=== PATIENT | male | born 1980 | race Caucasian/White ===

== ENCOUNTER 2017-09-14 01:40 | Emergency (ER) | payer SELFPAY ==
[2017-09-14 02:04] VITALS: BP 139/89; PULSE 77; RESP 16; TEMP 36.5; O2SAT 96; BMI 28.4
--- NOTE | 2017-09-14 02:06 | DI.RAD.S_ITS ---
PROCEDURE: XR CHEST 2V INDICATIONS: periumblical pain TECHNIQUE: 2 views of the chest were acquired. COMPARISON: [facility], , CHEST 1 VIEW, 10/24/2008, 4:03. FINDINGS: Surgical changes and devices: None. Lungs and pleura: No pleural effusions or pneumothorax. Lungs are clear. Mediastinum: Mediastinal contours are normal. Heart size is normal. Bones and chest wall: No suspicious bony abnormalities. Soft tissues appear unremarkable. IMPRESSION: No acute cardiopulmonary disease process. Dictated by: Susan Loyd MD, PhD on 09/14/2017 at 7:55 Approved by: Susan Loyd MD, PhD on 09/14/2017 at 7:56
--- NOTE | 2017-09-14 02:07 | DI.CT.S_ITS ---
PROCEDURE: CT ABDOMEN PELVIS W CON INDICATIONS: periumbilical pain TECHNIQUE: After the administration of intravenous contrast, 5 mm thick sections acquired from the diaphragm to the symphysis. 5 mm coronal and sagittal reformats were acquired. For radiation dose reduction, the following was used: automated exposure control, adjustment of mA and/or kV according to patient size. COMPARISON: None. FINDINGS: Image quality: Limited by motion artifact. Patient reportedly had hiccups during image acquisition. ABDOMEN: Lung bases: Lung bases are clear. Heart size is normal. Solid organs: Liver is normal in size and enhancement. Diffuse fatty infiltration of the liver. Gallbladder is normal.. Biliary system is non dilated. Pancreas enhances normally. Spleen is absent. No adrenal nodules. Kidneys demonstrate normal size and enhancement, without hydronephrosis. Peritoneum and bowel: Bowel loops demonstrate normal wall thickness and caliber. No free fluid or air. The appendix is normal. Nodes and vessels: No retroperitoneal or mesenteric adenopathy by size criteria. Aorta and inferior vena cava are normal in size. Miscellaneous: No ventral hernias. PELVIS: Genitourinary: Bladder wall thickness is normal. Miscellaneous: No inguinal hernias or adenopathy. Bones: No suspicious bony lesions. No vertebral body compression fractures. Spine degenerative disc disease and facet arthropathy. IMPRESSION: 1. No acute disease process. 2. The appendix is normal. 3. No free fluid or air. 4. Hepatic steatosis. 5. Status post splenectomy. Dictated by: Susan Loyd MD, PhD on 09/14/2017 at 7:44 Approved by: Susan Loyd MD, PhD on 09/14/2017 at 7:50
[2017-09-14 02:38] VITALS: BP 110/71; PULSE 100; RESP 18; O2SAT 97
[2017-09-14 02:39] LABS: Add Manual Diff / Slide Review NO; Eosinophils Percent Auto 0.9 % (2-4); Hematocrit 46.9 % (41-53); Hemoglobin 16.1 g/dL (13.5-17.5); Lymphocytes Percent Auto 38.3 % (25-40); Mean Corpuscular HGB Conc 34.3 % (30-36); Mean Corpuscular Hemoglobin 32.2 PG (26-34); Monocytes Percent Auto 6.6 % (3-14); Neutrophils Absolute Auto 5300 /uL (3000-5900); Neutrophils Percent Auto 53.2 % (50-75); Platelet Count 237 X10^3/uL (150-400); Red Blood Cell Count 4.99 X10^6/uL (4.5-5.9); Red Cell Distribution Width 12.1 % (11.6-14.8)
[2017-09-14] MEDS: SODIUM CHLORIDE 0.9% 1,000 ML 1000 ML IV (02:46)
[2017-09-14] MEDS: HYDROMORPHONE 0.5 MG INJ 1 MG IV (02:46)
[2017-09-14 02:53] LABS: Ethanol (ETOH) 191 mg/dL; Lipase 74 U/L (23-300)
[2017-09-14 02:54] LABS: Alanine Aminotransferase 51 IU/L (21-72); Albumin 4.1 g/dL (3.5-5.0); Albumin Globulin Ratio 1.5 (1.0-2.8); Alkaline Phosphatase 59 U/L (38-126); Aspartate Aminotransferase 46 IU/L (17-59); BUN Creatinine Ratio 19.2 (6-22); Bilirubin Total 0.5 mg/dL (0.2-1.3); Blood Urea Nitrogen 23 mg/dL (9-20); Calcium 8.9 mg/dL (8.4-10.2); Carbon Dioxide 24 mmol/L (22-32); Chloride 100 mmol/L (98-107); Estimated Glomerular Filt Rate > 60.0 mL/min (>60); Globulin 2.8 g/dL (1.7-4.1); Glucose 91 mg/dL (70-100); HEMOLYSIS < 15 (0-50); Sodium 139 mmol/L (137-145); Total Protein 6.9 g/dL (6.3-8.2)
[2017-09-14 03:06] LABS: Troponin I < 0.012 ng/mL (0.01-0.034)
[2017-09-14 03:30] VITALS: BP 110/65; PULSE 57; RESP 18; O2SAT 100
[2017-09-14 04:30] VITALS: BP 108/54; PULSE 66; RESP 16; O2SAT 97
[2017-09-14 05:30] VITALS: BP 100/49; PULSE 65; RESP 14; O2SAT 96
[2017-09-14 05:37] LABS: Bacteria Urine None Seen; RBC Urine None Seen (0-5/HPF); WBC Urine None Seen (0-5/HPF)
[2017-09-14 05:38] LABS: Appearance Urine UA CLEAR; Bilirubin Urine UA NEGATIVE (NEGATIVE); Glucose Urine UA NEGATIVE (Normal); Ketones Urine UA NEGATIVE (NEGATIVE); Leukocyte Esterase Urine UA NEGATIVE (NEGATIVE); Nitrite Urine UA Negative (Negative); Occult Blood Urine UA NEGATIVE (Negative); Protein Urine UA NEGATIVE (Negative); Specific Gravity Urine UA <=1.005 (1.000-1.035); Urobilinogen Urine UA 0.2 E.U./dL (0.2); pH Urine UA 6.5 (4.5-8.0)
[2017-09-14 05:39] LABS: Color Urine UA Straw
[2017-09-14 05:43] LABS: Culture Indicated Urine Cult Not Indicated; Urine Comments Microscopic Normal
--- NOTE | 2017-09-14 05:51 | ED_ITS ---
HPI - Abdominal Pain General Chief Complaint: Abdominal Pain Stated Complaint: EXTREME STOMACH PAIN DUE TO DRINKING History of Present Illness HPI narrative: HPI 36-year-old male with history of a splenectomy (2/2 shrapnel wounds in [place]) presents with poorly characterized mid to upper abdominal pain decreased LOC after drinking. Patient is unreliable historian but accompanied by peers who provides most history. Patient also reportedly has a history of taking flexeril , possibly recreationally, in the setting of alcohol use. M/S/F/SocHx notable for: please see HPI; remainder reviewed with patient and in chart. ROS: Negative constitutional, eye, cardiovascular, pulmonary, GI, , MSK, skin , neurologic, psychiatric, endocrine unless noted in the HPI. Exam Gen: pleasant, moderately uncomfortable but not in extremis. HEENT: NC, AT, PEERL, EOMI. Resp: Clear to auscultation bilaterally, normal work of breathing. Card: Regular rate and rhythm with no murmurs rubs or gallops, extremities warm and well perfused. GI: ND, no RUQ TTP, moderate epigastric TTP, mild diffuse turns palpation, no rebound or guarding. : No CVA tenderness to percussion bilaterally. MSK: No visible deformities, strength and tone WNL. Skin: Normal color with no visible lesions. Neuro: AO x 3, moderately slurring speech, no facial asymmetry, vision and hearing WNL. Psych: Mood and affect appropriate. Labs / Imaging (pertinent): WBC 10.0, HB 16.1, sodium 139, potassium 4.0, total bilirubin 0.5, AST 46, ALT 51, ALP 59, troponin less than 0.012, lipase 74, EtOH 191. CXR: No acute cardiopulmonary disease process. No focal infiltrate, cardiomegaly , rib fractures, or mediastinal widening, lung markings extend to the periphery bilaterally and there are no deep sulci. CT abdomen/pelvis: normal appearing appendix retrocecal and location. There are some mildly prominent lymph nodes in the periaortic retroperitoneum. These could be reactive. Follow-up suggested. Fatty liver. Spleen not identified be surgically absent. Scattered diverticulitis of the descending colon without findings to suggest diverticulitis. EKG: SR 69 bpm, diffuse, but predominantly precordial, J-point elevation with J- point notching in lead V2 and concave ST segments with concordant and asymmetric T waves, no T-wave inversions, no LBBB. MDM Previous chart, nursing note, and vitals reviewed. A: 36-year-old male with history of a splenectomy (2/2 shrapnel wounds in [place]) presents with poorly characterized mid to upper abdominal pain decreased LOC after drinking. DDx: Biliary disease (cholecystitis, cholelithiasis, choledocholithiasis, biliary colic), pancreatitis, appendicitis, ureterolithiasis, peptic ulcer disease, GERD, ACS, PE. Evaluation: exam notable for toxidrome consistent with [employer] depressants, EtOH level elevated, no findings on history or exam to suggest clinically significant traumatic injuries. Patient noted to have hypoxemia with respiratory pauses when supine, when sitting up right the patient had SaO2 of 99 % or greater on room air, the absence of shortness breath, tachycardia, hypotension, report and risk factors evaluation with respect to PE is not indicated. Patient's chest x-ray clear, ECG is nonischemic, J-point elevation is noted, however this is most consistent with ANURAG. Troponin negative. Patient given 0.5 mg hydromorphone with resolution symptoms. CT abdomen/pelvis notable for mild lymphadenopathy, possibly reactive. This could potentially explain the patient's presenting symptoms. However, is felt more likely that the patient has alcoholic gastritis. Given the absence of hemoptysis, the patient's normal chest x-ray, non-toxic. Strongly doubt Boerhaave's or [place] tears. No evidence on history, labs, or imaging of biliary disease. As the patient has [employer] depression and recurrent hypoxia only when supine he was observed in the ED pending clearance of his toxidrome and repeat evaluation, patient care transferred to Dr. Rebollar, the oncoming daytime provider. Impression: abdominal pain, EtOH intoxication (please reference below for remainder of encounter information) Related Data Home Medications Medication Instructions Recorded Confirmed Wellbutrin XL 09/14/17 Allergies Allergy/AdvReac Type Severity Reaction Status Date / Time No Known Drug Allergies Allergy Verified 09/14/17 02:44 [facility] Social History Smoking Status: Current every day smoker Exam Initial Vital Signs Initial Vital Signs: Vital Signs Temperature 97.7 F 09/14/17 02:04 Pulse Rate 77 09/14/17 02:04 Respiratory Rate 16 09/14/17 02:04 Blood Pressure 139/89 H 09/14/17 02:04 Pulse Oximetry 96 09/14/17 02:04 Course Orders Ordered: ED Orders 09/14/17 02:06 XR chest 2V Stat 09/14/17 02:07 CT abdomen pelvis w con Stat EKG-12 Lead Stat 09/14/17 02:30 Complete Blood Count AUTO DIFF Stat Comprehensive Metabolic Panel Stat Ethanol (ETOH) Stat Lipase Stat Troponin I Stat 09/14/17 05:00 Urinalysis and Microscopic Stat Discontinued Medications Hydromorphone HCl (Dilaudid) 1 mg IV NOW ONE Stop: 09/14/17 02:08 Last Admin: 09/14/17 02:46 Dose: 0.5 mg Sodium Chloride (Normal Saline 0.9%) 1,000 mls @ 1,000 mls/hr IV BOLUS ONE Stop: 09/14/17 03:28 Last Infusion: 09/14/17 04:03 Dose: 0 mls/hr Admin: 09/14/17 02:46 Dose: 1,000 mls/hr Vital Signs - 8 hr 09/14/17 02:04 09/14/17 02:38 09/14/17 03:30 Temperature 97.7 F Pulse Rate 77 100 H 57 L Respiratory Rate 16 18 18 Blood Pressure 139/89 H Blood Pressure [Right Arm] 110/71 110/65 Pulse Oximetry 96 97 100 09/14/17 04:30 09/14/17 05:30 Temperature Pulse Rate 66 65 Respiratory Rate 16 14 Blood Pressure Blood Pressure [Right Arm] 108/54 L 100/49 L Pulse Oximetry 97 96 MDM - Abdominal Pain Lab Data Result diagrams: 09/14/17 02:30 09/14/17 02:30 Lab Results 09/14/17 09/14/17 09/14/17 Range/Units 02:30 02:30 02:30 WBC 10.0 (4.5-11.0) X10^3/uL RBC 4.99 (4.5-5.9) X10^6/uL Hgb 16.1 (13.5-17.5) g/dL Hct 46.9 (41-53) % MCV 94.0 (80-100) fL MCH 32.2 (26-34) PG MCHC 34.3 (30-36) % RDW 12.1 (11.6-14.8) % Plt Count 237 (150-400) X10^3/uL Neut % (Auto) 53.2 (50-75) % Lymph % (Auto) 38.3 (25-40) % [place] % (Auto) 6.6 (3-14) % Eos % (Auto) 0.9 L (2-4) % Baso % (Auto) 1.0 (0-2) % Neut # (Auto) 5300 (4263-8270) /uL Sodium 139 (137-145) mmol/L Potassium 4.0 (3.4-5.1) mmol/L Chloride 100 (98-107) mmol/L Carbon Dioxide 24 (22-32) mmol/L BUN 23 H (9-20) mg/dL Creatinine 1.20 (0.66-1.25) mg/dL Estimated GFR > 60.0 (>60) mL/min BUN/Creatinine Ratio 19.2 (6-22) Glucose 91 (70-100) mg/dL Calcium 8.9 (8.4-10.2) mg/dL Total Bilirubin 0.5 (0.2-1.3) mg/dL AST 46 (17-59) IU/L ALT 51 (21-72) IU/L Alkaline Phosphatase 59 (38-126) U/L Troponin I < 0.012 (0.01-0.034) ng/mL Total Protein 6.9 (6.3-8.2) g/dL Albumin 4.1 (3.5-5.0) g/dL Globulin 2.8 (1.7-4.1) g/dL Albumin/Globulin Ratio 1.5 (1.0-2.8) Lipase 74 (23-300) U/L Urine Color Urine Appearance Urine pH (4.5-8.0) Ur Specific [place] (1.000-1.035) Urine Protein (Negative) Urine Glucose (UA) (Normal) g/dL Urine Ketones (NEGATIVE) Urine Occult Blood (Negative) Urine Nitrate (Negative) Urine Bilirubin (NEGATIVE) Urine Urobilinogen (0.2) E.U./dL Ur Leukocyte Esterase (NEGATIVE) Urine RBC (0-5/HPF) Urine WBC (0-5/HPF) Urine Bacteria (None) Ur Culture Indicated? Micro UA Comment Ethyl Alcohol 191 mg/dL 09/14/17 Range/Units 05:00 WBC (4.5-11.0) X10^3/uL RBC (4.5-5.9) X10^6/uL Hgb (13.5-17.5) g/dL Hct (41-53) % MCV (80-100) fL MCH (26-34) PG MCHC (30-36) % RDW (11.6-14.8) % Plt Count (150-400) X10^3/uL Neut % (Auto) (50-75) % Lymph % (Auto) (25-40) % [place] % (Auto) (3-14) % Eos % (Auto) (2-4) % Baso % (Auto) (0-2) % Neut # (Auto) (3316-3630) /uL Sodium (137-145) mmol/L Potassium (3.4-5.1) mmol/L Chloride (98-107) mmol/L Carbon Dioxide (22-32) mmol/L BUN (9-20) mg/dL Creatinine (0.66-1.25) mg/dL Estimated GFR (>60) mL/min BUN/Creatinine Ratio (6-22) Glucose (70-100) mg/dL Calcium (8.4-10.2) mg/dL Total Bilirubin (0.2-1.3) mg/dL AST (17-59) IU/L ALT (21-72) IU/L Alkaline Phosphatase (38-126) U/L Troponin I (0.01-0.034) ng/mL Total Protein (6.3-8.2) g/dL Albumin (3.5-5.0) g/dL Globulin (1.7-4.1) g/dL Albumin/Globulin Ratio (1.0-2.8) Lipase (23-300) U/L Urine Color Straw Urine Appearance Clear Urine pH 6.5 (4.5-8.0) Ur Specific [place] <=1.005 (1.000-1.035) Urine Protein Negative (Negative) Urine Glucose (UA) Negative (Normal) g/dL Urine Ketones Negative (NEGATIVE) Urine Occult Blood Negative (Negative) Urine Nitrate Negative (Negative) Urine Bilirubin Negative (NEGATIVE) Urine Urobilinogen 0.2 (0.2) E.U./dL Ur Leukocyte Esterase Negative (NEGATIVE) Urine RBC None seen (0-5/HPF) Urine WBC None seen (0-5/HPF) Urine Bacteria None seen (None) Ur Culture Indicated? Cult not indicated Micro UA Comment Microscopic normal Ethyl Alcohol mg/dL Discharge Plan Departure Prescriptions: No Action Wellbutrin XL RF: 0
[2017-09-14 06:37] VITALS: BP 103/68; PULSE 58; RESP 16; O2SAT 98
== END 2017-09-14 07:45 | disposition home or self-care (01) ==
PROVIDERS: Emergency Provider Emergency Medicine; Family Provider Orthopaedic Surgery; PCP Family Medicine
DX: R10.9 Unspecified abdominal pain (principal); F10.929 Alcohol use, unspecified with intoxication, unspecified
CPT/HCPCS: 36591; 71046; 74177; 80053; 80320; 81001; 83690; 84484; 85025; 93005; 96361; 96374; 99283; 99285; J1170; Q9967